=== PATIENT | female | born 1975 | race Caucasian/White ===

== ENCOUNTER 2023-05-02 14:35 | Inpatient (IN) | payer MEDICAID ==
[~2023-05-02] VITALS: Ht 167.6 cm; Wt 77.3 kg
[~2023-05-02 14:35] MED LIST: ASPI1CPM9 PO; CITA40TA32 PO; CLOP75TA33 PO; HYDR-4383 PO; INSU100V36 SQ; LANTUS SUBCUT; LISI2.5T14 PO
[2023-05-02 15:12] LABS: BASOPHILS % (AUTO) 0.1 % (0-1); EOSINOPHILS % (AUTO) 0 % (0-6); HEMATOCRIT 32.1 % (35.0-45.0); HEMOGLOBIN 10.4 g/dl (12.0-16.0); LYMPHOCYTES # (AUTO) 0.2 X10'3 (1.1-4.8); LYMPHOCYTES % (AUTO) 1.6 % (21-51); MEAN CORPUSCULAR HEMOGLOBIN 29.5 PG (27.0-31.0); MEAN CORPUSCULAR HGB CONC 32.3 g/dL (33.0-36.5); MEAN CORPUSCULAR VOLUME 91.3 FL (78-98); MEAN PLATELET VOLUME 8.6 FL (7.4-10.4); MONOCYTES # (AUTO) 0.5 X10'3 (0-0.9); MONOCYTES % (AUTO) 3.5 % (2-12); NEUTROPHILS # (AUTO) 13.3 X10'3 (1.8-7.7); NEUTROPHILS % (AUTO) 94.8 % (42-75); PLATELET COUNT 288 X10'3 (140-440); RED BLOOD COUNT 3.51 X10'6 (4.20-5.60); RED CELL DISTRIBUTION WIDTH 13.5 % (11.5-14.5); WHITE BLOOD COUNT 14.1 X10'3 (4.5-11.0)
[2023-05-02 15:35] LABS: ALANINE AMINOTRANSFERASE 25 U/L (12-78); ALBUMIN 2.6 G/DL (3.4-5.0); ALBUMIN/GLOBULIN RATIO 0.6 (1.1-1.5); ALKALINE PHOSPHATASE 131 IU/L (46-116); ANION GAP 28 (8-16); ASPARTATE AMINO TRANSFERASE 21 U/L (10-37); BILIRUBIN,TOTAL 0.8 MG/DL (0.1-1.0); BLOOD UREA NITROGEN 20 MG/DL (7-18); BUN/CREATININE RATIO 9.8 (10.0-20.0); CALCIUM 8.8 MG/DL (8.5-10.1); CHLORIDE 94 MMOL/L (99-107); CREATININE 2.05 MG/DL (0.40-0.90); POTASSIUM 3.5 MMOL/L (3.5-5.1); PRO BRAIN NATRIURETIC PEPTIDE 1161 PG/ML (0-125); SODIUM 137 MMOL/L (135-145); TOTAL PROTEIN 6.8 G/DL (6.4-8.2); eCRCL 31 ML/MIN; eGFR 26 ML/MIN
[2023-05-02 15:40] LABS: GLUCOSE 577 MG/DL (70-104)
[2023-05-02] MEDS ORDERED: normal saline 1000ML IV soln IV ONE (15:40)
[2023-05-02] MEDS ORDERED: insulin regular, human 10 units/0.1 ml syringe SQ SCH (15:40)
[2023-05-02] MEDS ORDERED: insulin regular, human 10 units/0.1 ml syringe SQ ONE (15:40)
[2023-05-02 15:54] LABS: MAGNESIUM 1.8 MG/DL (1.5-2.4)
[2023-05-02] MEDS ORDERED: Insulin Reg/NS 100units/100mL 100 ML IV PRN (16:10)
[2023-05-02] MEDS ORDERED: potassium CL 10mEq/100ml bag 100 ML IV ONE (16:10)
[2023-05-02] MEDS ORDERED: magnesium 2GM in 50ml NS 50 ML IV ONE (16:10)
[2023-05-02] MEDS ORDERED: dextrose 50%-water 50ml dispensing syringe IV PRN (16:25)
[2023-05-02] MEDS ORDERED: acetaminophen 325mg tablet PO PRN (16:25)
[2023-05-02] MEDS ORDERED: magnesium 4gm in 100ml NS 100 ML IV PRN (16:25)
[2023-05-02] MEDS ORDERED: potassium Cl 20 mEq SR tablet PO PRN ×3 (16:25→23:15)
[2023-05-02] MEDS ORDERED: HYDROcodone/acetaminophen 10/325mg tab PO PRN (16:25)
[2023-05-02] MEDS ORDERED: HYDROcodone/acetaminophen 5mg/325mg tablet PO PRN (16:25)
[2023-05-02] MEDS ORDERED: magnesium 2GM in 50ml NS 50 ML IV PRN (16:25)
[2023-05-02] MEDS ORDERED: MESSAGE TO PHARMACY PO ONE (16:25)
[2023-05-02] MEDS ORDERED: magnesium hydroxide 30ml (MOM) UD suspension PO PRN (16:25)
[2023-05-02] MEDS ORDERED: mag hydrox/Alum hydrox/simeth 30ml oral suspension PO PRN (16:25)
[2023-05-02] MEDS ORDERED: magnesium Cl slow-release 64mg tablet PO PRN (16:25)
[2023-05-02] MEDS ORDERED: glucagon, human recombinant 1mg kit SUBCUT PRN (16:25)
[2023-05-02] MEDS ORDERED: DEXTROSE 15 GM of carb/4 tabs (each vial/BOTTLE has 4 tablets) PO PRN ×2 (16:25)
[2023-05-02] MEDS ORDERED: insulin regular, human 10 units/0.1 ml syringe IV ONE (17:20)
[2023-05-02 17:36] LABS: HEMOGLOBIN A1C 7.3 % (4.5-6.2)
[2023-05-02 17:48] LABS: THYROID STIMULATING HORMONE 1.19 ulU/ml (0.34-4.50)
[2023-05-02] MEDS ORDERED: LORazepam 2 mg/ml vial IM PRN (18:15)
[2023-05-02 18:32] LABS: ABG BASE EXCESS -19.6 mmol/L (-2.0-2.0); ABG HCO3 5.9 mmol/L (22.0-26.0); ABG OXYGEN SATURATION 97.9 % (94-97); ABG PCO2 (T) 14.7 mmHg (32.0-45.0); ABG PH (T) 7.224 (7.350-7.450); ABG PO2 (T) 132.3 mmHg (75.0-100.0); ALLEN'S TEST Modified; FCOHb 0.2 % (0.0-3.9); FHHb 2.1 % (0.0-5.0); FMetHb 0.3 % (0.0-1.5); FO2Hb 97.4 % (94-97); MODE ROOM AIR; PATIENT TEMPERATURE 36.8; TOTAL HEMOGLOBIN 9.7 G/dl (12.0-16.0)
[2023-05-02 19:33] LABS: GLUCOSE 642 MG/DL (70-104)
[2023-05-02] MEDS: K and/or MAG REPLACEMENT MC SCH (20:00)
[2023-05-02] MEDS ORDERED: insulin glargine (Lantus) pen - multi-dose SQ SCH (21:00)
[2023-05-02 21:21] LABS: ALANINE AMINOTRANSFERASE 24 U/L (12-78); ALBUMIN/GLOBULIN RATIO 0.6 (1.1-1.5); ALKALINE PHOSPHATASE 107 IU/L (46-116); ANION GAP 26 (8-16); ASPARTATE AMINO TRANSFERASE 15 U/L (10-37); BILIRUBIN,TOTAL 0.5 MG/DL (0.1-1.0); BLOOD UREA NITROGEN 21 MG/DL (7-18); BUN/CREATININE RATIO 10.3 (10.0-20.0); CALCIUM 6.9 MG/DL (8.5-10.1); CHLORIDE 107 MMOL/L (99-107); CREATININE 2.04 MG/DL (0.40-0.90); GLUCOSE 373 MG/DL (70-104); SODIUM 143 MMOL/L (135-145); TOTAL PROTEIN 5.1 G/DL (6.4-8.2); eCRCL 31 ML/MIN; eGFR 26 ML/MIN
[2023-05-02] MEDS: docusate sod 100mg capsule PO SCH (21:23)
[2023-05-02 21:25] LABS: POTASSIUM 2.6 MMOL/L (3.5-5.1); TOTAL CARBON DIOXIDE 9.9 MMOL/L (24-32)
[2023-05-02] MEDS: potassium Cl 40MEQ/1/2NS 520ml 520 ML IV PRN (21:48)
[2023-05-02] MEDS: heparin, porcine 5000 units/ml vial SQ SCH (23:02)
[2023-05-02] MEDS: Insulin Reg/NS 100units/100mL 100 ML IV SCH (23:15)
[2023-05-02] MEDS ORDERED: potassium Cl 40MEQ/1/2NS 520ml 520 ML IV PRN ×2 (23:15)
[2023-05-02] MEDS ORDERED: Neutra Phos packet PO PRN (23:15)
[2023-05-02] MEDS ORDERED: sodium phosphate inj. 30 MMOL in dextrose 5%-water 250 ML IV PRN (23:15)
[2023-05-02] MEDS ORDERED: insulin regular, human U-100 3ml vial - multi-dose IV PRN (23:15)
[2023-05-02] MEDS ORDERED: sodium bicarbonate (8.4%) inj. 50 MEQ in dextrose 5% water 500ml 250 ML IV PRN (23:15)
[2023-05-02] MEDS ORDERED: sodium phosphate inj. 15 MMOL in dextrose 5%-water 250 ML IV PRN (23:15)
[2023-05-02] MEDS ORDERED: sodium bicarbonate (8.4%) inj. 100 MEQ in dextrose 5% water 500ml 500 ML IV PRN (23:15)
[2023-05-02] MEDS ORDERED: potassium CL 20mEq in D5-1/2NS 1,000 ML IV PRN (23:15)
[2023-05-02 23:22] LABS: ALBUMIN 2.2 G/DL (3.4-5.0); ANION GAP 21 (8-16); BLOOD UREA NITROGEN 22 MG/DL (7-18); BUN/CREATININE RATIO 10.6 (10.0-20.0); CALCIUM 7.8 MG/DL (8.5-10.1); CHLORIDE 108 MMOL/L (99-107); CREATININE 2.07 MG/DL (0.40-0.90); GLUCOSE 213 MG/DL (70-104); MAGNESIUM 2.1 MG/DL (1.5-2.4); PHOSPHORUS 1.9 MG/DL (2.3-4.5); POTASSIUM 3.1 MMOL/L (3.5-5.1); PRO BRAIN NATRIURETIC PEPTIDE 1127 PG/ML (0-125); SODIUM 145 MMOL/L (135-145); eCRCL 30 ML/MIN; eGFR 25 ML/MIN
[2023-05-02] MEDS ORDERED: dextrose 5%-1/2 normal saline 1,000 ML IV ONE (23:25)
[2023-05-02 23:48] LABS: HCG SERUM QL NEGATIVE
[2023-05-03 01:13] LABS: ALBUMIN 2.3 G/DL (3.4-5.0); ANION GAP 16 (8-16); BLOOD UREA NITROGEN 20 MG/DL (7-18); BUN/CREATININE RATIO 10.6 (10.0-20.0); CALCIUM 7.8 MG/DL (8.5-10.1); CHLORIDE 109 MMOL/L (99-107); CREATININE 1.89 MG/DL (0.40-0.90); GLUCOSE 122 MG/DL (70-104); SODIUM 144 MMOL/L (135-145); TOTAL CARBON DIOXIDE 19.3 MMOL/L (24-32); eCRCL 33 ML/MIN; eGFR 28 ML/MIN
[2023-05-03] MEDS ORDERED: diazepam inj 5 MG/ML inj. IV ONE (01:30)
[2023-05-03] MEDS: potassium Cl 40MEQ/1/2NS 520ml 520 ML IV PRN ×2 (02:22→07:21)
[2023-05-03] MEDS ORDERED: ziprasidone IM 20mg inj **IM only IM ONE (02:40)
[2023-05-03 03:27] LABS: BASOPHILS % (AUTO) 0.1 % (0-1); EOSINOPHILS % (AUTO) 0 % (0-6); HEMATOCRIT 26.7 % (35.0-45.0); HEMOGLOBIN 8.9 g/dl (12.0-16.0); MEAN CORPUSCULAR HEMOGLOBIN 29.6 PG (27.0-31.0); MEAN CORPUSCULAR HGB CONC 33.3 g/dL (33.0-36.5); MEAN CORPUSCULAR VOLUME 88.9 FL (78-98); MONOCYTES # (AUTO) 1.1 X10'3 (0-0.9); MONOCYTES % (AUTO) 7.2 % (2-12); NEUTROPHILS # (AUTO) 12.8 X10'3 (1.8-7.7); NEUTROPHILS % (AUTO) 85.7 % (42-75); PLATELET COUNT 270 X10'3 (140-440); RED BLOOD COUNT 3.01 X10'6 (4.20-5.60); RED CELL DISTRIBUTION WIDTH 13.1 % (11.5-14.5); WHITE BLOOD COUNT 14.9 X10'3 (4.5-11.0)
[2023-05-03 03:49] LABS: ALANINE AMINOTRANSFERASE 26 U/L (12-78); ALBUMIN 2.4 G/DL (3.4-5.0); ALBUMIN/GLOBULIN RATIO 0.6 (1.1-1.5); ALKALINE PHOSPHATASE 123 IU/L (46-116); ANION GAP 13 (8-16); ASPARTATE AMINO TRANSFERASE 26 U/L (10-37); BILIRUBIN,TOTAL 0.4 MG/DL (0.1-1.0); BLOOD UREA NITROGEN 17 MG/DL (7-18); BUN/CREATININE RATIO 10.4 (10.0-20.0); CALCIUM 7.9 MG/DL (8.5-10.1); CHLORIDE 109 MMOL/L (99-107); CREATININE 1.64 MG/DL (0.40-0.90); GLUCOSE 101 MG/DL (70-104); MAGNESIUM 1.9 MG/DL (1.5-2.4); SODIUM 144 MMOL/L (135-145); TOTAL CARBON DIOXIDE 21.9 MMOL/L (24-32); TOTAL PROTEIN 6.1 G/DL (6.4-8.2); eCRCL 38 ML/MIN; eGFR 33 ML/MIN
[2023-05-03 03:52] LABS: POTASSIUM 2.9 MMOL/L (3.5-5.1)
[2023-05-03 07:17] LABS: ALBUMIN 2.1 G/DL (3.4-5.0); ANION GAP 11 (8-16); BLOOD UREA NITROGEN 15 MG/DL (7-18); BUN/CREATININE RATIO 10.5 (10.0-20.0); CALCIUM 7.3 MG/DL (8.5-10.1); CHLORIDE 110 MMOL/L (99-107); CREATININE 1.43 MG/DL (0.40-0.90); GLUCOSE 74 MG/DL (70-104); MAGNESIUM 1.8 MG/DL (1.5-2.4); PHOSPHORUS 1.4 MG/DL (2.3-4.5); POTASSIUM 3.2 MMOL/L (3.5-5.1); SODIUM 144 MMOL/L (135-145); TOTAL CARBON DIOXIDE 23.5 MMOL/L (24-32); eCRCL 44 ML/MIN; eGFR 39 ML/MIN
[2023-05-03] MEDS: DEXTROSE 10 % AND 0.45 % NACL 1,000 ML IV SCH ×2 (07:23→21:33)
[2023-05-03] MEDS: docusate sod 100mg capsule PO SCH ×2 (07:29→20:00)
[2023-05-03] MEDS: dextrose 50%-water 50ml dispensing syringe IV PRN ×2 (07:58→10:07)
[2023-05-03] MEDS: K and/or MAG REPLACEMENT MC SCH ×4 (08:57→20:00)
[2023-05-03] MEDS ORDERED: potassium phosphate inj 30 MMOL in normal saline 250ml IV soln 250 ML IV ONE (10:15)
[2023-05-03] MEDS: magnesium oxide 400mg tablet PO ONE ×2 (10:20→11:01)
[2023-05-03] MEDS: heparin, porcine 5000 units/ml vial SQ SCH ×2 (11:01→22:07)
[2023-05-03] MEDS: ondansetron/PF 4mg/2ml inj IV PRN (11:19)
[2023-05-03 14:59] LABS: BILIRUBIN,URINE SMALL (Neg); CLARITY,URINE CLEAR (Clear); COLOR,URINE YELLOW (Yellow); GLUCOSE, URINE 500 mg/dl (Neg); KETONES,URINE 40 mg/dl (Neg); LEUKOCYTE ESTERASE ,URINE NEGATIVE (Neg); NITRITES, URINE NEGATIVE (Neg); OCCULT BLOOD,URINE SMALL (Neg); PROTEIN,URINE 30 mg/dl (Neg); UROBILINOGEN,URINE 0.2 E.U/dL (0.2-1.0)
[2023-05-03 15:02] LABS: UA COLLECTION TYPE VOIDED
[2023-05-03 15:03] LABS: BACTERIA,URINE NONE SEEN /HPF (Neg); MUCUS STRANDS NONE SEEN /LPF (Neg); RBC,URINE 0-2 /HPF (0-2); SQUAMOUS EPITHELIAL CELL,UR FEW /LPF (FEW); WBC,URINE NONE SEEN /HPF (0-4)
[2023-05-03 15:10] LABS: TOTAL PROTEIN,URINE RANDOM 85.1 MG/DL
[2023-05-03 15:27] LABS: URINE AMPHETAMINE SCREEN NEGATIVE (Neg); URINE BARBITUATE SCREEN NEGATIVE (Neg); URINE BENZODIAZEPINES SCREEN NEGATIVE (Neg); URINE CANNABINOID SCREEN POSITIVE (Neg); URINE COCAINE SCREEN NEGATIVE (Neg); URINE METHADONE SCREEN NEGATIVE (Neg); URINE OPIATE SCREEN NEGATIVE (Neg); URINE PHENCYCLIDINE SCREEN NEGATIVE (Neg)
[2023-05-03] MEDS: insulin Lispro (HumaLOG) vial - multi-dose SQ SCH (17:01)
[2023-05-03] MEDS: potassium Cl 20 mEq SR tablet PO PRN ×2 (18:15→22:06)
[2023-05-03] MEDS: Insulin Reg/NS 100units/100mL 100 ML IV SCH (19:15)
[2023-05-03] MEDS ORDERED: insulin regular, human 10 units/0.1 ml syringe SQ ONE (19:30)
[2023-05-03] MEDS ORDERED: insulin glargine (Lantus) pen - multi-dose SQ ONE (19:30)
[2023-05-03] MEDS: normal saline 1000ml 1,000 ML IV SCH (19:35)
[2023-05-03] MEDS ORDERED: lisinopril 10 MG tablet PO ONE (19:40)
[2023-05-03 20:15] VITALS: BP 161/69; PULSE 90; RESP 16; TEMP 98.6; O2SAT 100
[2023-05-03 21:00] VITALS: RESP 16; O2SAT 100
[2023-05-03] MEDS ORDERED: insulin glargine (Lantus) pen - multi-dose SQ SCH (21:00)
[2023-05-03 22:00] VITALS: BP 161/63; PULSE 96; RESP 18; TEMP 98.9; O2SAT 100
[2023-05-04 02:00] VITALS: BP 142/58; PULSE 84; RESP 17; TEMP 98.2; O2SAT 100
[2023-05-04] MEDS: ondansetron/PF 4mg/2ml inj IV PRN ×2 (03:10→12:26)
[2023-05-04] MEDS: dextrose 50%-water 50ml dispensing syringe IV PRN ×2 (03:29→07:56)
[2023-05-04 06:00] VITALS: BP 145/57; PULSE 77; RESP 13; TEMP 98.1; O2SAT 96
[2023-05-04 06:27] LABS: BASOPHILS % (AUTO) 0.7 % (0-1); EOSINOPHILS # (AUTO) 0.1 X10'3 (0-0.9); HEMATOCRIT 26.3 % (35.0-45.0); HEMOGLOBIN 8.7 g/dl (12.0-16.0); LYMPHOCYTES % (AUTO) 17.8 % (21-51); MEAN CORPUSCULAR HGB CONC 33.3 g/dL (33.0-36.5); MEAN CORPUSCULAR VOLUME 90.1 FL (78-98); MEAN PLATELET VOLUME 7.9 FL (7.4-10.4); MONOCYTES # (AUTO) 0.3 X10'3 (0-0.9); MONOCYTES % (AUTO) 6.2 % (2-12); NEUTROPHILS % (AUTO) 74.3 % (42-75); PLATELET COUNT 193 X10'3 (140-440); RED BLOOD COUNT 2.91 X10'6 (4.20-5.60); RED CELL DISTRIBUTION WIDTH 13.4 % (11.5-14.5); WHITE BLOOD COUNT 5.4 X10'3 (4.5-11.0)
[2023-05-04 06:48] LABS: ALANINE AMINOTRANSFERASE 28 U/L (12-78); ALBUMIN 1.9 G/DL (3.4-5.0); ALBUMIN/GLOBULIN RATIO 0.6 (1.1-1.5); ALKALINE PHOSPHATASE 108 IU/L (46-116); ANION GAP 8 (8-16); ASPARTATE AMINO TRANSFERASE 30 U/L (10-37); BILIRUBIN,TOTAL 0.4 MG/DL (0.1-1.0); BLOOD UREA NITROGEN 7 MG/DL (7-18); CALCIUM 7.8 MG/DL (8.5-10.1); CHLORIDE 108 MMOL/L (99-107); CREATININE 0.87 MG/DL (0.40-0.90); GLUCOSE 91 MG/DL (70-104); MAGNESIUM 1.7 MG/DL (1.5-2.4); POTASSIUM 3.4 MMOL/L (3.5-5.1); SODIUM 140 MMOL/L (135-145); TOTAL CARBON DIOXIDE 23.6 MMOL/L (24-32); TOTAL PROTEIN 5.2 G/DL (6.4-8.2); eCRCL 72 ML/MIN; eGFR 69 ML/MIN
[2023-05-04] MEDS: K and/or MAG REPLACEMENT MC SCH ×2 (06:56)
[2023-05-04] MEDS: potassium Cl 20 mEq SR tablet PO PRN ×2 (07:59→12:24)
[2023-05-04 08:00] VITALS: RESP 13; O2SAT 96
[2023-05-04] MEDS: docusate sod 100mg capsule PO SCH (08:00)
[2023-05-04] MEDS ORDERED: lisinopril 10 MG tablet PO SCH (08:00)
[2023-05-04] MEDS: heparin, porcine 5000 units/ml vial SQ SCH (08:02)
[2023-05-04] MEDS ORDERED: ESCI20TA39 PO (08:17)
[2023-05-04] MEDS ORDERED: ESCI-8 PO (08:17)
[2023-05-04] MEDS ORDERED: AMLO10TA13 PO (08:17)
[2023-05-04] MEDS ORDERED: ATOR-2 PO (08:17)
[2023-05-04] MEDS ORDERED: QUET50TA24 PO (08:17)
[2023-05-04] MEDS ORDERED: QUET25TA36 PO (08:17)
[2023-05-04] MEDS: normal saline 1000ml 1,000 ML IV SCH (09:23)
[2023-05-04] MEDS ORDERED: LISI10TA27 PO (10:46)
[2023-05-04] MEDS ORDERED: PROC-8 PO (11:43)
[2023-05-04] MEDS ORDERED: PANT-47 PO (11:43)
[2023-05-04] MEDS ORDERED: ONDA4TAB12 PO (12:38)
[2023-05-04] MEDS: insulin Lispro (HumaLOG) vial - multi-dose SQ SCH (14:31)
[2023-05-04 15:00] VITALS: BP 174/69; PULSE 81; RESP 16; TEMP 98.2; O2SAT 100
== END 2023-05-04 16:08 | disposition home or self-care (01) | DRG 420 ==
LOC: ER 14:35 → ED HOLD 16:28 → EDBEDREQ 05-03 18:27 → PCU 3S 05-03 19:59
PROVIDERS: ADMIT Internal Medicine; ATTEND Internal Medicine
DX: E10.10 Type 1 diabetes mellitus with ketoacidosis without coma (principal); N17.9 Acute kidney failure, unspecified; E66.9 Obesity, unspecified; E10.319 Type 1 diabetes mellitus with unspecified diabetic retinopathy without macular edema; Z68.27 Body mass index [BMI] 27.0-27.9, adult; E78.5 Hyperlipidemia, unspecified; E86.0 Dehydration; F10.129 Alcohol abuse with intoxication, unspecified; F41.9 Anxiety disorder, unspecified; I10 Essential (primary) hypertension; Z79.4 Long term (current) use of insulin; Z86.73 Personal history of transient ischemic attack (TIA), and cerebral infarction without residual deficits; Z88.0 Allergy status to penicillin; Z96.41 Presence of insulin pump (external) (internal)
CPT/HCPCS: 36415; 36600; 70551; 71045; 80048; 80053; 80305; 81001; 82570; 82800; 82803; 82947; 82948; 83036; 83605; 83735; 83880; 84100; 84145; 84156; 84300; 84443; 84484; 84703; 85018; 85025; 87040; 87081; 93005; 93306; 99291; G0378; J1644; J1815; J2405; J3360; J3475; J3480; J3486; J3490; J7030; J7050

== ENCOUNTER 2023-08-09 23:32 | Inpatient (IN) | payer MEDICAID ==
[~2023-08-09] VITALS: Ht 167.6 cm; Wt 74.1 kg
[~2023-08-09 23:32] MED LIST changes: +AMLO10TA13 PO; +ATOR-2 PO; +ESCI-8 PO; +ESCI20TA39 PO; +LISI10TA27 PO; -LISI2.5T14 PO; +ONDA4TAB12 PO; +PANT-47 PO; +PROC-8 PO; +QUET25TA36 PO; +QUET50TA24 PO
[2023-08-10] VITALS (20 sets, daily range): BP systolic 134–186; BP diastolic 40–81; PULSE 83–113; RESP 9–24; O2SAT 90–100
[2023-08-10] MEDS: ondansetron/PF 4mg/2ml inj IV STA (00:01)
[2023-08-10] MEDS: normal saline 1000ML IV soln IVB ONE ×2 (00:02→01:56)
[2023-08-10 00:29] LABS: MEAN PLATELET VOLUME 8.9 FL (7.4-10.4); RED CELL DISTRIBUTION WIDTH 12.9 % (11.5-14.5)
[2023-08-10 00:31] LABS: BASOPHILS % (AUTO) 0.3 % (0-1); EOSINOPHILS % (AUTO) 0.4 % (0-6); HEMATOCRIT 37.6 % (35.0-45.0); HEMOGLOBIN 12.5 g/dl (12.0-16.0); LYMPHOCYTES # (AUTO) 0.6 X10'3 (1.1-4.8); LYMPHOCYTES % (AUTO) 5.1 % (21-51); MEAN CORPUSCULAR HEMOGLOBIN 29.8 PG (27.0-31.0); MEAN CORPUSCULAR HGB CONC 33.1 g/dL (33.0-36.5); MEAN CORPUSCULAR VOLUME 89.8 FL (78-98); MONOCYTES # (AUTO) 0.3 X10'3 (0-0.9); MONOCYTES % (AUTO) 3.1 % (2-12); NEUTROPHILS # (AUTO) 10.3 X10'3 (1.8-7.7); NEUTROPHILS % (AUTO) 91.1 % (42-75); PLATELET COUNT 232 X10'3 (140-440); RED BLOOD COUNT 4.18 X10'6 (4.20-5.60); WHITE BLOOD COUNT 11.3 X10'3 (4.5-11.0)
[2023-08-10 00:33] LABS: ALANINE AMINOTRANSFERASE 17 U/L (12-78); ALBUMIN 3.8 G/DL (3.4-5.0); ALBUMIN/GLOBULIN RATIO 0.8 (1.1-1.5); ALKALINE PHOSPHATASE 113 IU/L (46-116); ANION GAP 26 (8-16); ASPARTATE AMINO TRANSFERASE 19 U/L (10-37); BILIRUBIN,TOTAL 0.7 MG/DL (0.1-1.0); BLOOD UREA NITROGEN 29 MG/DL (7-18); BUN/CREATININE RATIO 16.4 (10.0-20.0); CALCIUM 9.6 MG/DL (8.5-10.1); CHLORIDE 97 MMOL/L (99-107); CREATININE 1.77 MG/DL (0.40-0.90); GLUCOSE 277 MG/DL (70-104); LIPASE 17 U/L (16-77); SODIUM 140 MMOL/L (135-145); TOTAL CARBON DIOXIDE 17.3 MMOL/L (24-32); TOTAL PROTEIN 8.6 G/DL (6.4-8.2); eCRCL 36 ML/MIN; eGFR 30 ML/MIN
[2023-08-10 00:35] LABS: POTASSIUM 3.7 MMOL/L (3.5-5.1)
[2023-08-10] MEDS ORDERED: potassium Cl 40 mEq/0.45% sodium chloride IV soln 520ml IV ONE (01:15)
[2023-08-10] MEDS ORDERED: Insulin Reg/NS 100units/100mL 100 ML IV PRN (01:15)
[2023-08-10 01:51] LABS: URINE HCG NEGATIVE (NEG)
[2023-08-10 01:54] LABS: BILIRUBIN,URINE MODERATE (Neg); CLARITY,URINE SLIGHTLY CLOUDY (Clear); COLOR,URINE YELLOW (Yellow); GLUCOSE, URINE NEGATIVE (Neg); KETONES,URINE >=80 mg/dl (Neg); LEUKOCYTE ESTERASE ,URINE TRACE (Neg); NITRITES, URINE NEGATIVE (Neg); OCCULT BLOOD,URINE MODERATE (Neg); PROTEIN,URINE >=300 mg/dl (Neg); UROBILINOGEN,URINE 0.2 E.U/dL (0.2-1.0)
[2023-08-10] MEDS: Insulin Reg/NS 100units/100mL 100 ML IV PRN (01:55)
[2023-08-10] MEDS: potassium CL 10mEq/100ml bag 100 ML IV ONE (01:56)
[2023-08-10 02:14] LABS: UA COLLECTION TYPE NON-SPECIFIED
[2023-08-10 02:19] LABS: RBC,URINE 0-2 /HPF (0-2)
[2023-08-10 02:20] LABS: SQUAMOUS EPITHELIAL CELL,UR MODERATE /LPF (FEW)
[2023-08-10 02:21] LABS: MUCUS STRANDS MODERATE /LPF (Neg)
[2023-08-10 02:25] LABS: BACTERIA,URINE 1+ /HPF (Neg)
[2023-08-10] MEDS ORDERED: potassium Cl 40MEQ/1/2NS 520ml 520 ML IV ONE (02:30)
[2023-08-10 02:37] LABS: MAGNESIUM 1.7 MG/DL (1.5-2.4)
[2023-08-10 02:43] LABS: PHOSPHORUS 1.1 MG/DL (2.3-4.5)
[2023-08-10] MEDS: CefTRIAXone/D5W-Rocephin 1gm 50 ML IV ONE (03:00)
[2023-08-10] MEDS ORDERED: morphine 2 MG/ML inj. syringe IV PRN (03:10)
[2023-08-10] MEDS ORDERED: potassium Cl 40MEQ/1/2NS 520ml 520 ML IV PRN (03:10)
[2023-08-10] MEDS ORDERED: HYDROcodone/acetaminophen 10/325mg tab PO PRN (03:10)
[2023-08-10] MEDS ORDERED: sodium phosphate inj. 15 MMOL in dextrose 5%-water 250 ML IV PRN (03:10)
[2023-08-10] MEDS ORDERED: sodium bicarbonate (8.4%) inj. 100 MEQ in dextrose 5% water 500ml 500 ML IV PRN (03:10)
[2023-08-10] MEDS ORDERED: acetaminophen 325mg tablet PO PRN ×3 (03:10→03:30)
[2023-08-10] MEDS ORDERED: Neutra Phos packet PO PRN (03:10)
[2023-08-10] MEDS ORDERED: mag hydrox/Alum hydrox/simeth 30ml oral suspension PO PRN (03:10)
[2023-08-10] MEDS ORDERED: magnesium hydroxide 30ml (MOM) UD suspension PO PRN ×2 (03:10→03:30)
[2023-08-10] MEDS ORDERED: insulin regular, human U-100 3ml vial - multi-dose IV PRN (03:10)
[2023-08-10] MEDS: normal saline 1000ml 1,000 ML IV SCH ×2 (03:10)
[2023-08-10] MEDS ORDERED: HYDROcodone/acetaminophen 5mg/325mg tablet PO PRN (03:10)
[2023-08-10] MEDS ORDERED: potassium Cl 20 mEq SR tablet PO PRN (03:10)
[2023-08-10] MEDS ORDERED: sodium phosphate inj. 30 MMOL in dextrose 5%-water 250 ML IV PRN (03:10)
[2023-08-10] MEDS: dextrose 5%-lactated ringers 1,000 ML IV SCH (03:15)
[2023-08-10] MEDS ORDERED: ciprofloxacin/D5W 200mg/100mL 100 ML IV SCH (03:20)
[2023-08-10] MEDS: sodium bicarbonate (8.4%) inj. 50 MEQ in dextrose 5% water 500ml 250 ML IV PRN (03:40)
[2023-08-10] MEDS: sodium phosphate inj. 30 MMOL in dextrose 5%-water 250 ML IV ONE (03:41)
[2023-08-10] MEDS: Insulin Reg/NS 100units/100mL 100 ML IV SCH (04:45)
[2023-08-10] MEDS: ondansetron/PF 4mg/2ml inj IV PRN ×2 (04:54→19:03)
[2023-08-10] MEDS: potassium CL 20mEq in D5-1/2NS 1,000 ML IV PRN (06:34)
[2023-08-10] MEDS: K and/or MAG REPLACEMENT MC SCH (07:22)
[2023-08-10] MEDS: docusate sod 100mg capsule PO SCH ×2 (07:22)
[2023-08-10] MEDS: ringers solution, lacted 1,000 ML IV ONE ×5 (07:30→13:16)
[2023-08-10] MEDS ORDERED: CefTRIAXone/D5W-Rocephin 1gm 50 ML IV SCH (08:00)
[2023-08-10 09:08] LABS: ALBUMIN 3.2 G/DL (3.4-5.0); ANION GAP 17 (8-16); BLOOD UREA NITROGEN 23 MG/DL (7-18); BUN/CREATININE RATIO 15.8 (10.0-20.0); CALCIUM 8.9 MG/DL (8.5-10.1); CHLORIDE 108 MMOL/L (99-107); CREATININE 1.46 MG/DL (0.40-0.90); GLUCOSE 122 MG/DL (70-104); SODIUM 148 MMOL/L (135-145); TOTAL CARBON DIOXIDE 22.8 MMOL/L (24-32); eCRCL 43 ML/MIN; eGFR 38 ML/MIN
[2023-08-10 09:14] LABS: POTASSIUM 2.6 MMOL/L (3.5-5.1)
[2023-08-10] MEDS: potassium Cl 40MEQ/1/2NS 520ml 520 ML IV PRN (10:16)
[2023-08-10] MEDS: DEXTROSE 10 % AND 0.45 % NACL 1,000 ML IV SCH (13:17)
[2023-08-10 16:03] LABS: ALBUMIN 2.5 G/DL (3.4-5.0); ANION GAP 9 (8-16); BLOOD UREA NITROGEN 13 MG/DL (7-18); BUN/CREATININE RATIO 12.6 (10.0-20.0); CALCIUM 7.6 MG/DL (8.5-10.1); CHLORIDE 107 MMOL/L (99-107); CREATININE 1.03 MG/DL (0.40-0.90); GLUCOSE 163 MG/DL (70-104); SODIUM 143 MMOL/L (135-145); TOTAL CARBON DIOXIDE 27.5 MMOL/L (24-32); eCRCL 61 ML/MIN; eGFR 57 ML/MIN
[2023-08-10 16:04] LABS: POTASSIUM 2.9 MMOL/L (3.5-5.1)
[2023-08-10] MEDS ORDERED: dextrose 50%-water 50ml dispensing syringe IV PRN ×2 (16:15)
[2023-08-10] MEDS ORDERED: glucagon, human recombinant 1mg kit SUBCUT PRN (16:15)
[2023-08-10] MEDS ORDERED: DEXTROSE 15 GM of carb/4 tabs (each vial/BOTTLE has 4 tablets) PO PRN (16:15)
[2023-08-10] MEDS: ringers solution, lacted 1,000 ML IV SCH (16:42)
[2023-08-10] MEDS: insulin glargine (Lantus) pen - multi-dose SQ SCH (16:44)
[2023-08-10] MEDS: morphine 2 MG/ML inj. syringe IV PRN (19:04)
[2023-08-10] MEDS ORDERED: QUEtiapine 25mg tablet PO PRN (19:10)
[2023-08-10] MEDS: enoxaparin 40mg/0.4ml syringe SQ SCH (21:02)
[2023-08-10] MEDS: QUEtiapine 25mg tablet PO SCH (21:02)
[2023-08-10] MEDS: insulin Lispro (HumaLOG) vial - multi-dose SQ SCH (21:15)
[2023-08-11] VITALS (10 sets, daily range): BP systolic 102–168; BP diastolic 61–88; PULSE 78–104; RESP 10–20; TEMP 98–99.2; O2SAT 94–100
[2023-08-11 04:35] LABS: ALANINE AMINOTRANSFERASE 15 U/L (12-78); ALBUMIN 2.7 G/DL (3.4-5.0); ALBUMIN/GLOBULIN RATIO 0.7 (1.1-1.5); ALKALINE PHOSPHATASE 88 IU/L (46-116); ANION GAP 6 (8-16); ASPARTATE AMINO TRANSFERASE 18 U/L (10-37); BILIRUBIN,TOTAL 0.5 MG/DL (0.1-1.0); BLOOD UREA NITROGEN 8 MG/DL (7-18); BUN/CREATININE RATIO 8.7 (10.0-20.0); CALCIUM 7.7 MG/DL (8.5-10.1); CHLORIDE 105 MMOL/L (99-107); CREATININE 0.92 MG/DL (0.40-0.90); GLUCOSE 123 MG/DL (70-104); MAGNESIUM 1.1 MG/DL (1.5-2.4); PHOSPHORUS 2.7 MG/DL (2.3-4.5); POTASSIUM 3.5 MMOL/L (3.5-5.1); SODIUM 142 MMOL/L (135-145); TOTAL CARBON DIOXIDE 30.8 MMOL/L (24-32); TOTAL PROTEIN 6.4 G/DL (6.4-8.2); eCRCL 68 ML/MIN; eGFR 65 ML/MIN
[2023-08-11 07:34] LABS: HEMATOCRIT 30.8 % (35.0-45.0); HEMOGLOBIN 10.3 g/dl (12.0-16.0); MEAN CORPUSCULAR HEMOGLOBIN 30.1 PG (27.0-31.0); MEAN CORPUSCULAR HGB CONC 33.5 g/dL (33.0-36.5); RED BLOOD COUNT 3.43 X10'6 (4.20-5.60); RED CELL DISTRIBUTION WIDTH 13.1 % (11.5-14.5); WHITE BLOOD COUNT 5.2 X10'3 (4.5-11.0)
[2023-08-11 07:35] LABS: BASOPHILS % (AUTO) 0.5 % (0-1); EOSINOPHILS % (AUTO) 0.3 % (0-6); LYMPHOCYTES # (AUTO) 1.3 X10'3 (1.1-4.8); LYMPHOCYTES % (AUTO) 25.8 % (21-51); MEAN PLATELET VOLUME 8.4 FL (7.4-10.4); MONOCYTES # (AUTO) 0.4 X10'3 (0-0.9); MONOCYTES % (AUTO) 8.3 % (2-12); NEUTROPHILS # (AUTO) 3.4 X10'3 (1.8-7.7); NEUTROPHILS % (AUTO) 65.1 % (42-75); PLATELET COUNT 116 X10'3 (140-440)
[2023-08-11] MEDS: CefTRIAXone/D5W-Rocephin 1gm 50 ML IV SCH (08:53)
[2023-08-11] MEDS: pantoprazole 40mg Tablet.DR PO SCH (08:54)
[2023-08-11] MEDS: amLODIPine 5mg tablet PO SCH (08:54)
[2023-08-11] MEDS: clopidogrel 75mg tablet PO SCH (08:55)
[2023-08-11] MEDS: ESCITALOPRAM 10 mg tablet 10 MG TABLET PO SCH (08:56)
[2023-08-11] MEDS: lisinopril 10 MG tablet PO SCH (08:56)
[2023-08-11] MEDS ORDERED: magnesium Cl slow-release 64mg tablet PO PRN (13:40)
[2023-08-11] MEDS ORDERED: ESCI20TA39 PO (13:41)
[2023-08-11] MEDS: magnesium 2GM in 50ml NS 50 ML IV PRN (14:18)
[2023-08-11] MEDS: magnesium 4gm in 100ml NS 100 ML IV PRN (16:36)
[2023-08-12] VITALS (7 sets, daily range): BP systolic 90–157; BP diastolic 51–75; PULSE 59–98; RESP 16–18; TEMP 97.5–99.7; O2SAT 93–100
[2023-08-12] MEDS: DEXTROSE 15 GM of carb/4 tabs (each vial/BOTTLE has 4 tablets) PO PRN (03:47)
[2023-08-12 08:09] LABS: BASOPHILS % (AUTO) 0.7 % (0-1); EOSINOPHILS # (AUTO) 0.1 X10'3 (0-0.9); EOSINOPHILS % (AUTO) 1.7 % (0-6); HEMATOCRIT 32.3 % (35.0-45.0); LYMPHOCYTES % (AUTO) 22.1 % (21-51); MEAN CORPUSCULAR HEMOGLOBIN 30.5 PG (27.0-31.0); MEAN CORPUSCULAR VOLUME 89.6 FL (78-98); MEAN PLATELET VOLUME 8.8 FL (7.4-10.4); MONOCYTES # (AUTO) 0.4 X10'3 (0-0.9); MONOCYTES % (AUTO) 8.5 % (2-12); NEUTROPHILS # (AUTO) 3.2 X10'3 (1.8-7.7); PLATELET COUNT 120 X10'3 (140-440); RED BLOOD COUNT 3.61 X10'6 (4.20-5.60); RED CELL DISTRIBUTION WIDTH 12.6 % (11.5-14.5); WHITE BLOOD COUNT 4.7 X10'3 (4.5-11.0)
[2023-08-12 08:33] LABS: ALANINE AMINOTRANSFERASE 11 U/L (12-78); ALBUMIN 2.1 G/DL (3.4-5.0); ALBUMIN/GLOBULIN RATIO 0.6 (1.1-1.5); ALKALINE PHOSPHATASE 74 IU/L (46-116); ANION GAP 6 (8-16); ASPARTATE AMINO TRANSFERASE 15 U/L (10-37); BILIRUBIN,TOTAL 0.3 MG/DL (0.1-1.0); BLOOD UREA NITROGEN 7 MG/DL (7-18); BUN/CREATININE RATIO 6.7 (10.0-20.0); CALCIUM 7.1 MG/DL (8.5-10.1); CHLORIDE 101 MMOL/L (99-107); CREATININE 1.05 MG/DL (0.40-0.90); GLUCOSE 318 MG/DL (70-104); MAGNESIUM 2.3 MG/DL (1.5-2.4); PHOSPHORUS 3.2 MG/DL (2.3-4.5); POTASSIUM 3.1 MMOL/L (3.5-5.1); SODIUM 135 MMOL/L (135-145); TOTAL CARBON DIOXIDE 27.8 MMOL/L (24-32); TOTAL PROTEIN 5.6 G/DL (6.4-8.2); eCRCL 60 ML/MIN; eGFR 55 ML/MIN
[2023-08-12] MEDS: potassium Cl 20 mEq SR tablet PO PRN (10:13)
[2023-08-12] MEDS: normal saline 1000ml 1,000 ML IV SCH (12:32)
[2023-08-13] VITALS (9 sets, daily range): BP systolic 116–196; BP diastolic 54–86; PULSE 70–91; RESP 16–20; TEMP 97.6–98.4; O2SAT 97–100
[2023-08-13 07:56] LABS: BASOPHILS % (AUTO) 0.9 % (0-1); EOSINOPHILS # (AUTO) 0.2 X10'3 (0-0.9); EOSINOPHILS % (AUTO) 3.8 % (0-6); HEMATOCRIT 33.9 % (35.0-45.0); HEMOGLOBIN 11.3 g/dl (12.0-16.0); LYMPHOCYTES % (AUTO) 21.5 % (21-51); MEAN CORPUSCULAR HEMOGLOBIN 29.9 PG (27.0-31.0); MEAN CORPUSCULAR HGB CONC 33.4 g/dL (33.0-36.5); MEAN CORPUSCULAR VOLUME 89.5 FL (78-98); MEAN PLATELET VOLUME 9.2 FL (7.4-10.4); MONOCYTES # (AUTO) 0.3 X10'3 (0-0.9); MONOCYTES % (AUTO) 6.1 % (2-12); NEUTROPHILS % (AUTO) 67.7 % (42-75); PLATELET COUNT 114 X10'3 (140-440); RED BLOOD COUNT 3.78 X10'6 (4.20-5.60); RED CELL DISTRIBUTION WIDTH 12.3 % (11.5-14.5); WHITE BLOOD COUNT 4.5 X10'3 (4.5-11.0)
[2023-08-13 07:59] LABS: ALANINE AMINOTRANSFERASE 13 U/L (12-78); ALBUMIN 2.4 G/DL (3.4-5.0); ALBUMIN/GLOBULIN RATIO 0.6 (1.1-1.5); ALKALINE PHOSPHATASE 83 IU/L (46-116); ANION GAP 6 (8-16); ASPARTATE AMINO TRANSFERASE 21 U/L (10-37); BILIRUBIN,TOTAL 0.5 MG/DL (0.1-1.0); BLOOD UREA NITROGEN 6 MG/DL (7-18); BUN/CREATININE RATIO 7.1 (10.0-20.0); CALCIUM 7.6 MG/DL (8.5-10.1); CHLORIDE 105 MMOL/L (99-107); CREATININE 0.85 MG/DL (0.40-0.90); GLUCOSE 182 MG/DL (70-104); MAGNESIUM 1.9 MG/DL (1.5-2.4); PHOSPHORUS 2.5 MG/DL (2.3-4.5); POTASSIUM 3.4 MMOL/L (3.5-5.1); SODIUM 137 MMOL/L (135-145); TOTAL CARBON DIOXIDE 26.5 MMOL/L (24-32); TOTAL PROTEIN 6.1 G/DL (6.4-8.2); eCRCL 74 ML/MIN; eGFR 71 ML/MIN
[2023-08-13] MEDS ORDERED: hydrALAZINE 20mg/ml inj. IV PRN (15:30)
[2023-08-13] MEDS: fludrocortisone acetate 0.1mg tablet PO ONE (16:03)
[2023-08-13] MEDS ORDERED: potassium Cl 40MEQ/1/2NS 520ml 520 ML IV PRN (16:40)
[2023-08-13] MEDS: potassium Cl 20 mEq SR tablet PO PRN ×2 (17:11→20:08)
[2023-08-13] MEDS: insulin glargine (Lantus) pen - multi-dose SQ SCH (22:12)
[2023-08-14] VITALS (7 sets, daily range): BP systolic 116–164; BP diastolic 59–75; PULSE 70–105; RESP 12–20; TEMP 97–98.4; O2SAT 96–100
[2023-08-14 08:26] LABS: BASOPHILS # (AUTO) 0.1 X10'3 (0-0.2); EOSINOPHILS # (AUTO) 0.5 X10'3 (0-0.9); EOSINOPHILS % (AUTO) 8.9 % (0-6); HEMOGLOBIN 11.5 g/dl (12.0-16.0); LYMPHOCYTES # (AUTO) 1.5 X10'3 (1.1-4.8); LYMPHOCYTES % (AUTO) 27.9 % (21-51); MEAN CORPUSCULAR HEMOGLOBIN 30.4 PG (27.0-31.0); MEAN CORPUSCULAR HGB CONC 33.7 g/dL (33.0-36.5); MEAN CORPUSCULAR VOLUME 90.2 FL (78-98); MEAN PLATELET VOLUME 9.2 FL (7.4-10.4); MONOCYTES # (AUTO) 0.4 X10'3 (0-0.9); MONOCYTES % (AUTO) 7.4 % (2-12); NEUTROPHILS # (AUTO) 2.9 X10'3 (1.8-7.7); NEUTROPHILS % (AUTO) 54.8 % (42-75); PLATELET COUNT 117 X10'3 (140-440); RED BLOOD COUNT 3.77 X10'6 (4.20-5.60); RED CELL DISTRIBUTION WIDTH 12.4 % (11.5-14.5); WHITE BLOOD COUNT 5.4 X10'3 (4.5-11.0)
[2023-08-14 08:34] LABS: ALANINE AMINOTRANSFERASE 15 U/L (12-78); ALBUMIN 2.4 G/DL (3.4-5.0); ALBUMIN/GLOBULIN RATIO 0.6 (1.1-1.5); ALKALINE PHOSPHATASE 78 IU/L (46-116); ANION GAP 6 (8-16); ASPARTATE AMINO TRANSFERASE 14 U/L (10-37); BILIRUBIN,TOTAL 0.4 MG/DL (0.1-1.0); CALCIUM 8.3 MG/DL (8.5-10.1); CHLORIDE 107 MMOL/L (99-107); CREATININE 0.93 MG/DL (0.40-0.90); GLUCOSE 197 MG/DL (70-104); PHOSPHORUS 2.9 MG/DL (2.3-4.5); SODIUM 140 MMOL/L (135-145); TOTAL CARBON DIOXIDE 27.2 MMOL/L (24-32); TOTAL PROTEIN 6.2 G/DL (6.4-8.2); eCRCL 68 ML/MIN; eGFR 64 ML/MIN
[2023-08-14 08:59] LABS: BLOOD UREA NITROGEN 11 MG/DL (7-18); BUN/CREATININE RATIO 11.8 (10.0-20.0)
[2023-08-14] MEDS ORDERED: mag hydrox/Alum hydrox/simeth 30ml oral suspension PO PRN (10:40)
[2023-08-14] MEDS: proCHLORperazine 10 MG/2 ml inj IV PRN (14:14)
[2023-08-14] MEDS: sucralfate 1 gm tablet PO SCH (14:16)
[2023-08-14] MEDS: calcium carbonate 500mg chew tablet PO SCH (14:16)
[2023-08-14] MEDS: fludrocortisone acetate 0.1mg tablet PO SCH (15:46)
[2023-08-14] MEDS: lisinopril 20mg tablet PO SCH (15:51)
[2023-08-14] MEDS ORDERED: PANT40TA54 PO (16:21)
[2023-08-14] MEDS ORDERED: LISI40TA13 PO (16:21)
[2023-08-14] MEDS ORDERED: SUCR1TAB34 PO (16:21)
[2023-08-14] MEDS ORDERED: PROC10TA97 PO (16:21)
[2023-08-14] MEDS ORDERED: FLO0.1T PO (16:21)
[2023-08-15] MEDS ORDERED: DEXTROSE 15 GM of carb/4 tabs (each vial/BOTTLE has 4 tablets) PO PRN ×2 (01:00)
[2023-08-15] MEDS ORDERED: glucagon, human recombinant 1mg kit SUBCUT PRN (01:00)
[2023-08-15] MEDS ORDERED: dextrose 50%-water 50ml dispensing syringe IV PRN ×2 (01:00)
[2023-08-15 02:00] VITALS: BP 145/78; PULSE 60; RESP 19; TEMP 97; O2SAT 97
[2023-08-15 06:00] VITALS: BP 127/63; PULSE 75; RESP 14; TEMP 98.2; O2SAT 99
[2023-08-15] MEDS: insulin Lispro (HumaLOG) vial - multi-dose SQ SCH ×2 (07:00→08:51)
[2023-08-15 08:00] VITALS: RESP 18; O2SAT 100
[2023-08-15 08:13] LABS: BASOPHILS % (AUTO) 0.9 % (0-1); EOSINOPHILS # (AUTO) 0.4 X10'3 (0-0.9); EOSINOPHILS % (AUTO) 7.1 % (0-6); HEMATOCRIT 32.8 % (35.0-45.0); HEMOGLOBIN 10.9 g/dl (12.0-16.0); LYMPHOCYTES # (AUTO) 1.3 X10'3 (1.1-4.8); LYMPHOCYTES % (AUTO) 24.6 % (21-51); MEAN CORPUSCULAR HEMOGLOBIN 29.9 PG (27.0-31.0); MEAN CORPUSCULAR HGB CONC 33.3 g/dL (33.0-36.5); MEAN CORPUSCULAR VOLUME 89.8 FL (78-98); MEAN PLATELET VOLUME 9.2 FL (7.4-10.4); MONOCYTES # (AUTO) 0.4 X10'3 (0-0.9); MONOCYTES % (AUTO) 6.9 % (2-12); NEUTROPHILS # (AUTO) 3.1 X10'3 (1.8-7.7); NEUTROPHILS % (AUTO) 60.5 % (42-75); PLATELET COUNT 115 X10'3 (140-440); RED BLOOD COUNT 3.65 X10'6 (4.20-5.60); RED CELL DISTRIBUTION WIDTH 12.3 % (11.5-14.5); WHITE BLOOD COUNT 5.1 X10'3 (4.5-11.0)
[2023-08-15 08:30] LABS: ALANINE AMINOTRANSFERASE 17 U/L (12-78); ALBUMIN 2.2 G/DL (3.4-5.0); ALBUMIN/GLOBULIN RATIO 0.5 (1.1-1.5); ALKALINE PHOSPHATASE 81 IU/L (46-116); ANION GAP 3 (8-16); ASPARTATE AMINO TRANSFERASE 14 U/L (10-37); BILIRUBIN,TOTAL 0.4 MG/DL (0.1-1.0); BLOOD UREA NITROGEN 15 MG/DL (7-18); BUN/CREATININE RATIO 12.7 (10.0-20.0); CALCIUM 7.8 MG/DL (8.5-10.1); CHLORIDE 104 MMOL/L (99-107); CREATININE 1.18 MG/DL (0.40-0.90); GLUCOSE 228 MG/DL (70-104); MAGNESIUM 1.8 MG/DL (1.5-2.4); PHOSPHORUS 3.5 MG/DL (2.3-4.5); POTASSIUM 3.8 MMOL/L (3.5-5.1); SODIUM 135 MMOL/L (135-145); TOTAL CARBON DIOXIDE 27.6 MMOL/L (24-32); TOTAL PROTEIN 6.6 G/DL (6.4-8.2); eCRCL 53 ML/MIN; eGFR 48 ML/MIN
[2023-08-15 08:49] VITALS: BP_SYST 127; PULSE 75
== END 2023-08-15 15:12 | disposition home or self-care (01) | DRG 420 ==
LOC: ER 23:32 → UNDOADMIN 08-10 03:12 → ED HOLD 08-10 03:12 → CICU 2S 08-10 04:20 → PCU 3S 08-11 05:05
PROVIDERS: ADMIT Internal Medicine; ATTEND Family Medicine
DX: E11.10 Type 2 diabetes mellitus with ketoacidosis without coma (principal); N17.0 Acute kidney failure with tubular necrosis; R65.11 Systemic inflammatory response syndrome (SIRS) of non-infectious origin with acute organ dysfunction; I95.1 Orthostatic hypotension; I25.10 Atherosclerotic heart disease of native coronary artery without angina pectoris; E78.5 Hyperlipidemia, unspecified; F32.A Depression, unspecified; F41.9 Anxiety disorder, unspecified; N39.0 Urinary tract infection, site not specified; I10 Essential (primary) hypertension; E87.6 Hypokalemia; K29.70 Gastritis, unspecified, without bleeding; Z79.4 Long term (current) use of insulin; Z86.73 Personal history of transient ischemic attack (TIA), and cerebral infarction without residual deficits; Z79.899 Other long term (current) drug therapy; Z88.0 Allergy status to penicillin; Z83.3 Family history of diabetes mellitus; Z79.82 Long term (current) use of aspirin; Z79.02 Long term (current) use of antithrombotics/antiplatelets; I25.2 Old myocardial infarction
CPT/HCPCS: 36415; 71045; 80048; 80053; 81001; 81025; 82948; 83036; 83605; 83690; 83735; 84100; 84145; 85025; 87040; 87088; 93005; 99291; A4615; A6250; C1751; G0378; J0696; J0780; J1650; J1815; J2270; J2405; J3475; J3480; J3490; J7030; J7040; J7060; J7120; J7121